=== PATIENT | female | born 2000 | race American Indian/Alaskan Native ===

== ENCOUNTER 2020-05-12 23:46 | Emergency (ER) | payer SELFPAY ==
[2020-05-13] MEDS ORDERED: CLINDAMYCIN 300 MG CAP PO ONE ×2 (01:26→02:35)
[2020-05-13] MEDS ORDERED: SULFAMETHOXAZOLE/TRIMETHOPRIM 800/160MG DS TAB PO ONE ×2 (01:26→02:35)
[2020-05-13] MEDS ORDERED: HYDROcodone/ACETAMINOPHEN 5-325 MG TAB PO ONE ×2 (01:27→02:35)
[2020-05-13] MEDS ORDERED: ONDANSETRON 4 MG ODT TAB PO ONE ×2 (01:27→02:35)
[2020-05-13] MEDS ORDERED: IBUPROFEN 600 MG TAB PO ONE ×2 (01:27→02:35)
[2020-05-13 02:07] VITALS: BP 124/84
--- NOTE | 2020-05-13 02:10 | Emergency Department Report ---
- General Chief Complaint: Skin/Abscess/Foreign Body Stated Complaint: INFECTED CYST Source: patient Mode of arrival: Ambulatory Limitations: No Limitations - History of Present Illness Initial Comments: Patient is a nulliparous 20-year-old -Citizen Of [place] female with no past medical history presents to the ED with complaint of acute onset persistent painful mild erythematous maculopapular rash on the left labia majora near the clitoral area for the last 1 week. Patient states that she tried to drain the rash in the last 2 days but that the pain is still persistent. Patient denies fever, chills, nausea, vomiting, chest pain, shortness of breath, cough, traumatic injury, dizziness, syncope, abdominal pain, vaginal discharge, dysuria, urinary frequency and urgency or vaginal bleeding. -: Sudden, week(s) (1) Location: genitals Place: home Patient Tetanus UTD: Yes Context: other (spontaneous) Associated Symptoms: pain. denies: loss of feeling/numbness, suspect foreign body present, unable to move injured part, weakness followed by dizziness, other - Related Data Previous Rx's Medication Instructions Recorded Last Taken Type Ibuprofen [Motrin] 800 mg PO Q8HR PRN #30 tablet 05/13/20 Unknown Rx Sulfamethoxazole/Trimethoprim 1 each PO Q12H #20 tablet 05/13/20 Unknown Rx [Bactrim DS TAB] Allergies Allergy/AdvReac Type Severity Reaction Status Date / Time No Known Allergies Allergy Unverified 05/13/20 01:30 ED Review of Systems ROS: Stated complaint: INFECTED CYST Other details as noted in HPI Constitutional: denies: chills, fever Eyes: denies: eye pain, eye discharge, vision change ENT: denies: ear pain, throat pain Respiratory: denies: cough, shortness of breath, wheezing Cardiovascular: denies: chest pain, palpitations Endocrine: no symptoms reported Gastrointestinal: denies: abdominal pain, nausea, diarrhea Genitourinary: denies: urgency, dysuria, discharge Musculoskeletal: denies: back pain, joint swelling, arthralgia Skin: rash (swollen painful rash on genitalia). denies: lesions, change in color, change in hair/nails, pruritus Neurological: denies: headache, weakness, paresthesias Psychiatric: denies: anxiety, depression Hematological/Lymphatic: denies: easy bleeding, easy bruising ED Past Medical Hx - Past Medical History Previous Medical History?: No - Surgical History Past Surgical History?: No - Social History Smoking Status: Never Smoker - Medications Home Medications: Home Medications Medication Instructions Recorded Confirmed Last Taken Type Ibuprofen [Motrin] 800 mg PO Q8HR PRN #30 tablet 05/13/20 Unknown Rx Sulfamethoxazole/Trimethoprim 1 each PO Q12H #20 tablet 05/13/20 Unknown Rx [Bactrim DS TAB] ED Physical Exam - General Limitations: No Limitations General appearance: alert, in no apparent distress - Head Head exam: Present: atraumatic, normocephalic, normal inspection - Eye Eye exam: Present: normal appearance, PERRL, EOMI Pupils: Present: normal accommodation - ENT ENT exam: Present: normal exam, normal orophraynx, mucous membranes moist, TM's normal bilaterally, normal external ear exam - Neck Neck exam: Present: normal inspection, full ROM - Respiratory Respiratory exam: Present: normal lung sounds bilaterally. Absent: respiratory distress, wheezes, rales, rhonchi, chest wall tenderness, accessory muscle use, decreased breath sounds - Cardiovascular Cardiovascular Exam: Present: regular rate, normal rhythm, normal heart sounds. Absent: systolic murmur, diastolic murmur, rubs, gallop - GI/Abdominal GI/Abdominal exam: Present: soft, normal bowel sounds. Absent: tenderness, guarding, rebound, rigid, hyperactive bowel sounds, hypoactive bowel sounds, organomegaly - Extremities Exam Extremities exam: Present: normal inspection, full ROM, normal capillary refill - Back Exam Back exam: Present: normal inspection, full ROM. Absent: tenderness, CVA tenderness (R), CVA tenderness (L), muscle spasm, paraspinal tenderness - Neurological Exam Neurological exam: Present: alert, oriented X3, CN II-XII intact, normal gait, reflexes normal - Psychiatric Psychiatric exam: Present: normal affect, normal mood - Skin Skin exam: Present: warm, dry, intact, normal color, rash (mildly swollen tender small maculopapular nonflutuant rash on left labium majora), erythema ED Medical Decision Making - Medical Decision Making This is a nulliparous 20-year-old -Citizen Of [place] female with no past medical history presents to the ED with complaint of acute onset persistent painful mild erythematous maculopapular rash on the left labia majora near the clitoral area for the last 1 week. Patient states that she tried to drain the rash in the last 2 days but that the pain is still persistent. In the ED, patient is alert and oriented x3 and is not in distress. Physical exam shows mildly erythematous maculopapular nonfluctuant rash on the left upper labia majora. Patient was discharged home on pain medications and antibiotics and advised to follow-up with her primary care physician in 5 to 7 days for reevaluation or return to the ED immediately if symptoms get worse. - Differential Diagnosis Cellulitis; acute folliculitis; cutaneous abscess Critical care attestation.: If time is entered above; I have spent that time in minutes in the direct care of this critically ill patient, excluding procedure time. ED Disposition Clinical Impression: Acute folliculitis, Cellulitis of labia majora Disposition: TO HOME OR SELFCARE Is pt being admited?: No Does the pt Need Aspirin: No Condition: Stable Instructions: Cellulitis, Adult, Folliculitis Additional Instructions: Take medication with food, drink plenty of fluids and follow-up with your primary care physician in 7 to 10 days for reevaluation. Return to the ED immediately if symptoms get worse. Prescriptions: Sulfamethoxazole/Trimethoprim [Bactrim DS TAB] 1 each PO Q12H #20 tablet Ibuprofen [Motrin] 800 mg PO Q8HR PRN #30 tablet PRN Reason: Pain , Severe (7-10) Referrals: [facility] [Provider Group] - 3-5 Days Time of Disposition: 02:08 Print Language: BARBAD[place]
== END 2020-05-13 02:59 | disposition home or self-care (01) ==
LOC: ED 23:46
DX: L73.9 Follicular disorder, unspecified (principal); N76.2 Acute vulvitis; Z79.899 Other long term (current) drug therapy
CPT/HCPCS: 99282; Q0162